=== PATIENT | male | born 1965 | race Caucasian/White ===

== ENCOUNTER 2022-12-06 23:43 | Emergency (ER) | payer BC ==
[2022-12-06] MEDS ORDERED: Sodium Chloride 0.9% 1,000 ML IV SCH (23:45)
[2022-12-06] MEDS ORDERED: Ketorolac 30 MG/ML SDV IVPUSH ONE (23:55)
[2022-12-06] MEDS ORDERED: Sodium Chloride 0.9% 10 ML Syringe FLUSH PRN (23:55)
[2022-12-06] MEDS ORDERED: Ketorolac 30 MG/ML SDV ONE (23:56)
[2022-12-06] MEDS ORDERED: Ketorolac 15 MG/ML SDV ONE (23:56)
[2022-12-07] MEDS ORDERED: HYDROmorphone 1 MG/ML Syringe IVPUSH ONE (00:13)
[2022-12-07 01:28] LABS: APPEARANCE,URINE CLEAR (CLEAR); BILIRUBIN,URINE NEGATIVE (NEGATIVE); COLOR,URINE YELLOW (YELLOW); GLUCOSE,URINE NEGATIVE (NEGATIVE); KETONES,URINE NEGATIVE (NEGATIVE); LEUKOCYTE ESTERASE,URINE NEGATIVE (NEGATIVE); NITRITE,URINE NEGATIVE (NEGATIVE); OCCULT BLOOD,URINE SMALL (NEGATIVE); PH,URINE 8.5 (5.0-8.0); PROTEIN,URINE NEGATIVE (NEGATIVE); UROBILINOGEN,URINE 0.2 EU/dL (0.2-1.0)
[2022-12-07 01:38] LABS: AMORPHOUS SEDIMENT,URINE NOT SEEN; BACTERIA,URINE RARE; EPITHELIAL CELLS,URINE NOT SEEN; MUCUS,URINE NOT SEEN; WBC,URINE 0-5 (0-5)
== END 2022-12-07 02:47 | disposition home or self-care (01) ==
LOC: JP.ED 23:43
DX: N20.0 Calculus of kidney (principal)
CPT/HCPCS: 74176; 81001; 96361; 96374; 96375; 99284; J1170; J1885; J3490; J7030; 99283